=== PATIENT | male | born 2000 | race Caucasian/White ===

== ENCOUNTER 2023-05-10 15:37 | Observation (INO) | payer SELFPAY ==
[2023-05-10] VITALS (16 sets, daily range): BP systolic 106–129; BP diastolic 64–83; PULSE 72–104; RESP 14–19; TEMP 36.7–37.2; O2SAT 92–99; BMI 24.7; BMI 25.3
--- NOTE | 2023-05-10 15:56 | CTR_ITS ---
PROCEDURE INFORMATION: Exam: CT Abdomen And Pelvis With Contrast Exam date and time: 05/10/2023 4:11 PM Age: 22 years old Clinical indication: Abdominal pain; Localized; Right lower quadrant (rlq); Additional info: Rlq pain TECHNIQUE: Imaging protocol: Computed tomography of the abdomen and pelvis with contrast. Radiation optimization: All CT scans at this facility use at least one of these dose optimization techniques: automated exposure control; mA and/or kV adjustment per patient size (includes targeted exams where dose is matched to clinical indication); or iterative reconstruction. Contrast material: OMNI 350; Contrast volume: 100 ml; Contrast route: INTRAVENOUS (IV); REPORTING DATA: Count of CT and Cardiac NM exams in prior 12 months: This patient has received 0 known CTs and 0 known cardiac nuclear medicine studies in the 12 months prior to the current study. COMPARISON: No relevant prior studies available. RADIATION DOSE METRICS: Total DLP (mGy-cm): 346 FINDINGS: Lungs: No significant infiltrate or effusion is seen within the visualized lung bases. Liver: Normal. No mass. Gallbladder and bile ducts: Gallbladder is not well distended and otherwise unremarkable. No calcification or stones. No biliary ductal dilatation. Pancreas: Normal. No ductal dilation. Spleen: Normal. No splenomegaly. Adrenal glands: Normal. No mass. Kidneys and ureters: A small 6 mm rounded hypodense focus of fluid density is seen within the upper pole cortex of the left kidney suggesting small left renal cortical simple cyst. Kidneys appear unremarkable otherwise. Stomach and bowel: Gastric contents noted within a mildly distended stomach. Moderate stool volume in the colon. Bowel appears unremarkable otherwise. No obstruction. Appendix: A mildly thickened and mildly prominent tubular structure appears to arise from the posterior cecum, anterolateral of the right psoas muscle, appearing blind ending in relation to adjacent small bowel in the region. This measures up to 9 mm with suggestion mild wall thickening and minimal hazy mesenteric infiltration at this region. No fluid collection or free air. Findings suggest mild and/or early acute appendicitis, which is not excluded. This is seen on series 3 axial images 46 through 52. Series 5 coronal image 21. Series 6 sagittal images 44 through 46. Intraperitoneal space: See Soft tissues finding. Vasculature: Unremarkable. No abdominal aortic aneurysm. Lymph nodes: Unremarkable. No enlarged lymph nodes. Urinary bladder: Unremarkable as visualized. Reproductive: Unremarkable as visualized. Bones/joints: Osseous structures show no acute abnormality. Soft tissues: No acute findings. CT/CT abdomen pelvis w con* [id number] IMPRESSION: Findings suggesting mild and/or early acute appendicitis, as noted above. COMMENTS: Consistent with the [employer]'s Incidental Findings Committee white paper (J Am Chas Radiol 2018): Any incidental renal lesion less than 1 cm or classified as too small to characterize, or any incidental cystic renal lesion characterized as simple-appearing, is likely benign. No follow-up imaging is recommended for these lesions per consensus recommendations based on imaging criteria.
--- NOTE | 2023-05-10 15:57 | ED_ITS ---
HPI - Abdominal Pain 2 General: Chief Complaint: Abdominal Pain Stated Complaint: abd pain Time Seen by Provider: 05/10/23 15:42 Source: patient Mode of arrival: ambulatory Limitations: no limitations History of Present Illness: 22-year-old male states he has had right lower quadrant pain that started 2 hours ago. States pain is sharp in nature rates it an 8 out of 10 worse movement improved with rest he denies any dysuria has had no vomiting or diarrhea no previous abdominal surgeries. Associated Symptoms: Denies chills, diarrhea, dysuria, fever(s), nausea and vomiting Review of Systems 2 Const: Denies: fever(s), chills, body aches or change in appetite ENMT: Denies: throat pain or dental pain Card: Denies: chest pain Resp: Denies: dyspnea GI: Reports: abdominal pain; Denies: nausea, vomiting or diarrhea : Denies: dysuria Musc: Denies: neck pain or back pain Skin/Breast: Denies: rash Neuro: Denies: headache(s) Physical Exam 2 Const: COMMON NORMALS: no acute distress, patient oriented x3 and healthy appearing HENMT: COMMON NORMALS: normocephalic and atraumatic HEAD & SCALP: n ormocephalic and atraumatic Neck/C-Spine: COMMON NORMALS: full ROM and supple Chest: COMMONS NORMALS: normal inspection of the chest Resp: COMMON NORMALS: normal respiratory effort Cardio: COMMON NORMALS: regular rate, regular rhythm and No murmurs present (Cardio) RATE: regular rate RHYTHM: regular rhythm GI: COMMON NORMALS: Normal to inspection, nondistended, normoactive bowel sounds present, Soft to palpation and no masses PALPATION: Yes Soft to palpation and Yes Tenderness to palpation present (GI) Details: RLQ Extremity: COMMON NORMALS: normal to inspection and full ROM Neuro: COMMON NORMALS: patient oriented x3, moves all extremities and no focal motor deficits Psych: COMMON NORMALS: mental status grossly normal, Normal thought process present and cooperative THOUGHT PROCESS: Normal thought process present Skin: COMMON NORMALS: no rashes or lesions noted and no wounds GENERAL SKIN EXAM: no rashes or lesions noted Course 2 Vital Signs: Vital signs: Vital Signs Temperature 98.1 F 05/10/23 15:46 Pulse Rate 78 05/10/23 16:59 Respiratory Rate 16 05/10/23 15:46 Blood Pressure 118/72 12/21/23 15:46 Pulse Oximetry 97 05/10/23 16:59 MDM - Abdominal Pain Medical Decision Making Patient presents here with right lower quadrant pain CT here shows appendicitis of spoke to the surgeon Dr. Villanueva who is coming to see pt will start antibiotics. Medical Records I reviewed the patient's medical records. Lab Data I reviewed the patient's lab results. 05/10/23 16:09 05/10/23 16:09 Labs/Radiology: Radiology Impressions Abdomen/Pelvis CT 05/10/23 15:56 IMPRESSION: Findings suggesting mild and/or early acute appendicitis, as noted above. COMMENTS: Consistent with the [employer]'s Incidental Findings Committee white paper (J Am Chas Radiol 2018): Any incidental renal lesion less than 1 cm or classified as too small to characterize, or any incidental cystic renal lesion characterized as simple-appearing, is likely benign. No follow-up imaging is recommended for these lesions per consensus recommendations based on imaging criteria. Laboratory Results WBC 15.85 10^3/uL (3.29-11.43) H 05/10/23 16:09 RBC 5.95 10^6/uL (3.85-5.65) H 05/10/23 16:09 Hgb 17.10 g/dL (11.27-16.99) H 05/10/23 16:09 Hct 48.7 % (37-53) 05/10/23 16:09 MCV 81.8 fl (82-101) L 05/10/23 16:09 MCH 28.7 pg (27-33) 05/10/23 16:09 MCHC 35.1 g/dL (30-55) 05/10/23 16:09 RDW 12.2 % (12.1-15.1) 05/10/23 16:09 Plt Count 330 10^3/cmm (157-399) 05/10/23 16:09 MPV 9.6 fL (7.4-10.4) 05/10/23 16:09 Neut % (Auto) 86.0 % 05/10/23 16:09 Lymph % (Auto) 7.4 % 05/10/23 16:09 [place] % (Auto) 5.9 % 05/10/23 16:09 Eos % (Auto) 0.1 % 05/10/23 16:09 Baso % (Auto) 0.3 % 05/10/23 16:09 Neut # (Auto) 13.61 10^3/uL (1.8-7.7) H 05/10/23 16:09 Lymph # (Auto) 1.2 10^3/uL (0.8-4.8) 05/10/23 16:09 [place] # (Auto) 0.9 10^3/uL (0.2-0.9) 05/10/23 16:09 Eos # (Auto) 0.0 10^3/uL (0.0-0.8) 05/10/23 16:09 Baso # (Auto) 0.1 10^3/uL (0.0-0.1) 05/10/23 16:09 Nucleated RBC % (auto) 0 % 05/10/23 16:09 Nucleated RBCs # 0.0 /100WBC 05/10/23 16:09 Sodium 142 mmol/L (136-145) 05/10/23 16:09 Potassium 3.5 mmol/L (3.5-5.1) 05/10/23 16:09 Chloride 102 mmol/L (98-107) 05/10/23 16:09 Carbon Dioxide 29 mmol/L (22-29) 05/10/23 16:09 Anion Gap 14.5 (5-19) 05/10/23 16:09 BUN 15 mg/dL (6-20) 05/10/23 16:09 Creatinine 1.1 mg/dL (0.7-1.2) 05/10/23 16:09 GFR Calculation 83.0 mL/min (90-130) L 05/10/23 16:09 Glucose 102 mg/dL (65-115) 05/10/23 16:09 Calculated Osmolality 295 mOsm/kg (285-295) 05/10/23 16:09 Calcium 10.0 mg/dL (8.5-10.5) 05/10/23 16:09 Total Bilirubin 0.4 mg/dL (0.15-1.2) 05/10/23 16:09 AST 25 U/L (0-40) 05/10/23 16:09 ALT 47 U/L (0-41) H 05/10/23 16:09 Alkaline Phosphatase 118 U/L (40-130) 05/10/23 16:09 Total Protein 8.1 g/dL (6.6-8.7) 05/10/23 16:09 Albumin 5.2 g/dL (3.5-5.2) 05/10/23 16:09 Globulin 2.9 g/dL (1.3-4.6) 05/10/23 16:09 Lipase 15 U/L (13-60) 05/10/23 16:09 All radiology interpretation(s) finalized by discharge Discharge Plan Discharge Patient Disposition: Admitted As Inpatient Clinical Impression: Acute appendicitis Condition: Stable Prescriptions: No Action No Known Home Medications Patient Instructions: Appendicitis (GEN) Coding Level of Care Code ED [employer] Install[employer] Supervisor for Pily Loera
[2023-05-10] MEDS: sodium chloride 0.9% 1,000 ML 999 ML IV (16:19)
[2023-05-10] MEDS: iohexol 350 mg/mL 500 mL Btl (per mL) IV (16:19)
[2023-05-10 16:32] LABS: Basophils # 0.1 10^3/uL (0.0-0.1); Basophils % 0.3 %; Eosinophils % 0.1 %; Hematocrit 48.7 % (37-53); Lymphocytes # 1.2 10^3/uL (0.8-4.8); Lymphocytes % 7.4 %; Mean Corpuscular HGB Conc 35.1 g/dL (30-55); Mean Corpuscular Hemoglobin 28.7 pg (27-33); Mean Corpuscular Volume 81.8 fl (82-101); Mean Platelet Volume 9.6 fL (7.4-10.4); Monocytes # 0.9 10^3/uL (0.2-0.9); Monocytes % 5.9 %; Neutrophils # 13.61 10^3/uL (1.8-7.7); Nucleated Red Blood Cells % 0 %; Platelet Count 330 10^3/cmm (157-399); Red Blood Count 5.95 10^6/uL (3.85-5.65); Red Cell Distribution Width 12.2 % (12.1-15.1); White Blood Count 15.85 10^3/uL (3.29-11.43)
[2023-05-10 16:42] LABS: Alanine Aminotransferase 47 U/L (0-41); Albumin Level 5.2 g/dL (3.5-5.2); Alkaline Phosphatase 118 U/L (40-130); Anion Gap 14.5 (5-19); Aspartate Amino Transferase 25 U/L (0-40); Blood Urea Nitrogen 15 mg/dL (6-20); Carbon Dioxide 29 mmol/L (22-29); Chloride 102 mmol/L (98-107); Globulin 2.9 g/dL (1.3-4.6); Glucose 102 mg/dL (65-115); Lipase 15 U/L (13-60); Osmolality Calculated 295 mOsm/kg (285-295); Potassium 3.5 mmol/L (3.5-5.1); Sodium 142 mmol/L (136-145); Total Bilirubin 0.4 mg/dL (0.15-1.2); Total Protein 8.1 g/dL (6.6-8.7)
[2023-05-10] MEDS: piperacillin-tazobactam 3.375 GM in sodium chloride 0.9% (plus) 50 ML IV ×2 (17:13→23:17)
[2023-05-10 17:26] LABS: Add Urine Microscopic? YES; Bilirubin Urine Neg (Negative); Blood Urine Neg (Negative); Glucose Urine UA Norm (Normal); Ketones Urine Negative (Negative); Leukocyte Esterase Urine Negative (Negative); Nitrate Urine Negative (Negative); Protein Urine Neg (Negative); Specific Gravity, Urine 1.015 (1.005-1.030); Urine Appearance Cloudy (CLEAR); Urine Color Yellow (Yellow); Urobilinogen Urine Norm (Negative); pH Urine 7 (5-7)
--- NOTE | 2023-05-10 17:41 | P.HP_ITS ---
Providers/Chief Complaint 2 Admitting Physician: Rich Chief Complaint: abd pain History of Present Illness Raj Waller is a 22 year old male who presents with a 2 to 3-hour history of right lower quadrant pain. The patient states that he was working and developed sudden onset of right lower quadrant pain. The patient had no nausea or vomiting. The patient thought he was constipated. He did have a bowel movement. This did not relieve the patient's pain. The patient's states that he is not hungry. The pain hurts worse when he moves. The pain is better when he stays still. The patient is never had pain like this before. Nobody at home is in pain or has a viral syndrome Review of Systems 2 General: Reports: 10 or more systems reviewed and unremarkable except in HPI and below Medications/Allergies Home Medications Medication Instructions Recorded Confirmed Last Taken Type No Known Home Medications 05/10/23 05/10/23 Unknown History Allergies Allergy/AdvReac Type Severity Reaction Status Date / Time No Known Allergies Allergy Verified 05/10/23 15:48 Vitals/I&O/Wt Last Vital Signs Temp 98.1 F 05/10/23 15:46 Pulse 104 H 05/10/23 17:31 Resp 16 05/10/23 17:31 BP 120/69 05/10/23 17:31 Pulse Ox 98 05/10/23 17:31 O2 Del Method Room Air 05/10/23 17:31 Weight last 48 hrs Weight 140 lb Physical Exam 2 Narrative: Generally: No acute distress HEENT: Is normocephalic atraumatic Lungs: Clear to auscultation percussion Heart: Regular rate and rhythm without murmurs. There is no S3 or S4. There is no rubs clicks or JVD noted Abdomen: Soft, nondistended. The patient has point tenderness right lower quadrant with rebound. The patient has no hernias that I can appreciate. There is no hepatosplenomegaly Pelvis: Stable to both AP and medial compression Extremities: There is no obvious deformities or point tenderness suggestive of fracture. The patient's hands are both dirty. 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 The patient has good capillary refill in both his hands and feet. Neurologic: The patient is awake, alert, oriented x 3. The patient's Umair Coma Scale is 15. The patient moves all 4 extremities without difficulty. The patient sensations intact to light touch throughout. Data 12/21/23 16:09 05/10/23 16:09 Attestation for Other Data: I personally reviewed and interpreted the following: (I have reviewed the CT scan and labs on this patient) A&P Assessment and plan (1) Acute appendicitis: Will schedule the patient for a laparoscopic appendectomy, possible open appendectomy. The risk and benefits of this procedure have been explained to the patient. The patient seems to understand the risk and benefits and like to proceed. Qualifiers: Acute appendicitis type: unspecified acute appendicitis type Qualified Code(s): K35.80 - Unspecified acute appendicitis Attestations 2 Medical Necessity Statement*: Will admit for operative procedure Coding Level of Care Code 41643 Diagnoses Acute appendicitis K35.80 Acute appendicitis type: unspecified acute appendicitis type
[2023-05-10 18:00] LABS: Add Urine Culture? No; Amorphous Sediment Urine 2+ /hpf; RBC Urine RARE /hpf (0-2)
--- NOTE | 2023-05-10 19:44 | PM.OP ---
Operative Report Date of procedure: May 10, 2023 Pre-op diagnosis: Acute appendicitis Post-op diagnosis: same Procedure done: Laparoscopic appendectomy Pathology: Appendix Surgeon: Ian Villanueva MD Anesthesia: General Estimated blood loss (mL): 5 Complications: None noted Findings: Acute suppurative appendicitis. There is no evidence of perforation. The appendiceal stump was flush with the cecum. Condition: stable Disposition: PACU Brief History: This is a 22-year-old male who presents with acute onset of abdominal pain. CT scan of the abdomen pelvis is suggestive of acute appendicitis. The risk and benefits of laparoscopic appendectomy and been explained to the patient. The patient seems to understand the risk and benefits and would like to proceed. Procedure: The patient was brought to the operating room and placed in the supine position. After adequate endotracheal anesthesia, the patient's abdomen is prepped and draped in usual sterile fashion. Following this a timeout was performed. The patient's identifiers as well as the goals of procedure were discussed. Everyone in the room agreed. A towel clip was placed on each side of the umbilicus and lifted towards the ceiling. A curvilinear incision was made at the cephalad portion of the umbilicus. This was done with a 11 blade knife. This was a curvilinear incision. Hemostats were used to dissect down to the fascia. Now a 12 mm trocar was placed through this wound into the abdomen. The abdomen is now insufflated to 15 mmHg. A scope was placed through this port. It confirmed we were in the abdomen. There is no evidence of intra-abdominal injury. Now an incision was made just to the left of the midline in the left lower quadrant. This was done with the 11 blade. Now a 12 mm trocar was placed through this wound into the abdomen under direct vision. Attention was turned to just to the right of the midline over the symphysis pubis. This was a couple centimeters above the symphysis pubis. A small incision was made with 11 blade. Following this a 5 mm port was placed through this wound into the abdomen under direct vision. The patient was now placed in Trendelenburg. He was rolled with his left side down his right side up in order for the bowel to fall away from the right lower quadrant. Now a Tray was used to locate the the cecum. The appendix could easily be seen. The appendix was lifted up. There was just a few wispy adhesions. Taken down with the [place]. Was used to grab the appendix and the appendix was placed on some stretch towards the anterior abdominal wall. Now is able to see the full length of the appendix. I can see it going into the cecum. A window was created in the mesoappendix with my Mandi. This was done at the base of the appendix. Once this window was created a SHANI stapler was placed through this window across the base of the appendix. This had a blue load. This was fired. This amputated the appendix. Now, attention was turned to the mesoappendix. The SHANI stapler which was loaded with a white load was now placed across the mesoappendix. This was fired. This amputated the mesoappendix. The appendix was now placed in an Endobag. The patient was now flattened out. A Tray was used to grasp the cecum. The appendiceal stump was carefully inspected. There is no bleeding. The appendiceal stump was flush with the cecum. There was no bleeding from the mesoappendix. There is just a small amount of blood that was inferior and lateral to the cecum. I did not think that we needed to suction this out. I thought that this was adequate. Now, the trocar and the Endobag was pulled out of the left lower quadrant incision. A 5 mm trocar was also pulled out. These were both done under direct vision. There is no bleeding from the trocar sites. The abdomen was now allowed to deflate. The umbilical trocar was now removed. 0 Vicryl was used in a [id number] fashion to close the fascia at both 12 mm ports. Now 4-0 Monocryl was used in an interrupted fashion, a subcuticular, interrupted fashion to close the skin. Dermabond was applied. The patient was awakened and taken recovery room in stable condition. From the procedure I spoke with the patient's girlfriend. I explained the above findings. All questions were addressed.
--- NOTE | 2023-05-10 19:50 | ANES.PREANE2 ---
Pre-Anesthetic Assessment Height/Weight: Height 1.6 m Weight 63.503 kg Temp Pulse Resp BP Pulse Ox O2 Del Method 98.1 F 104 H 16 120/69 98 Room Air 05/10/23 15:46 05/10/23 17:31 05/10/23 17:31 05/10/23 17:31 05/10/23 17:31 05/10/23 17:31 Preop Diagnosis: abdominal pain Operation Date: 05/10/23 19:00 Proposed Procedures p Laparoscopic Appendectomy(Not Applicable) - Ian Villanueva MD Familial anesthetic complications: none Was Beta Barney taken within 24 hours: N/A Was Clonidine taken within 24 hours: N/A Last intake: Intake Last Liquid Date 05/10/23 Last Liquid Time 13:00 Last Solid Date 05/10/23 Last Solid Time 13:00 Social Tobacco (chews) and No alcohol Exam alert, oriented x 3, clear to auscultation bilaterally and regular rate & rhythm Airway Submandibular: within normal limits Cervical ROM: within normal limits Mallampati: Class II Dentition: chipped and partials (retainer) GI acute appe Anesthetic Plan ASA status: 2E Anesthesia: General (RSI) Medications/Allergies Home Medications Medication Instructions Recorded Confirmed Last Taken Type No Known Home Medications 05/10/23 05/10/23 Unknown History Allergies Allergy/AdvReac Type Severity Reaction Status Date / Time No Known Allergies Allergy Verified 05/10/23 15:48 Data Anesthesia 05/10/23 16:09 05/10/23 16:09 Short CBC 05/10/23 Range/Units 16:09 WBC 15.85 H (3.29-11.43) 10^3/uL Hgb 17.10 H (11.27-16.99) g/dL Hct 48.7 (37-53) % MCV 81.8 L (82-101) fl Plt Count 330 (157-399) 10^3/cmm Neut % (Auto) 86.0 % Neut # (Auto) 13.61 H (1.8-7.7) 10^3/uL BMP 05/10/23 16:09 Sodium 142 Potassium 3.5 Chloride 102 Carbon Dioxide 29 BUN 15 Creatinine 1.1 Glucose 102 Calcium 10.0 Liver Function 05/10/23 Range/Units 16:09 Total Bilirubin 0.4 (0.15-1.2) mg/dL AST 25 (0-40) U/L ALT 47 H (0-41) U/L Alkaline Phosphatase 118 (40-130) U/L Albumin 5.2 (3.5-5.2) g/dL Urine 05/10/23 Range/Units 16:51 Urine Color Yellow (Yellow) Urine Appearance Cloudy A (CLEAR) Urine pH 7 (5-7) Ur Specific [place] 1.015 (1.005-1.030) Urine Protein Neg (Negative) Urine Glucose (UA) Norm (Normal) Urine Ketones Negative (Negative) Urine Nitrate Negative (Negative) Urine Bilirubin Neg (Negative) Ur Leukocyte Esterase Negative (Negative) Urine RBC Rare (0-2) /hpf Urine WBC None (0-5) /hpf Cardiac Studies: No Data to Display
--- NOTE | 2023-05-10 20:04 | ANE.PACU2 ---
Inpatient post-anesthesia follow up: Airway intact: Yes Vital signs: Temperature 98. 6F Pulse Rate 100 Respiratory Rate 14 Blood Pressure 126/73 Pulse Oximetry 98 Oxygen Delivery Me thod RA Oxygen Flow Rate 0 Fraction of Inspir ed Oxygen Hydration adequate: Yes Nausea and vomiting: No Pain level: Other (0) Mental status: Baseline
[2023-05-10] MEDS: sodium chloride 0.9% 1,000 ML 75 ML IV (20:53)
[2023-05-10] MEDS: morphine 4 mg/mL SDV 1 mL 2 MG IVP (20:53)
[2023-05-11 01:30] VITALS: BP 114/66; PULSE 76; RESP 16; TEMP 36.9; O2SAT 95
[2023-05-11 03:30] VITALS: BP 109/65; PULSE 68; RESP 16; O2SAT 95
[2023-05-11 06:08] LABS: Basophils % 0.1 %; Hematocrit 44.1 % (37-53); Lymphocytes # 0.6 10^3/uL (0.8-4.8); Lymphocytes % 7.4 %; Mean Corpuscular HGB Conc 35.1 g/dL (30-55); Mean Corpuscular Hemoglobin 28.8 pg (27-33); Mean Platelet Volume 9.4 fL (7.4-10.4); Monocytes # 0.2 10^3/uL (0.2-0.9); Monocytes % 2.8 %; Neutrophils # 7.37 10^3/uL (1.8-7.7); Neutrophils % 89.5 %; Nucleated Red Blood Cells % 0 %; Platelet Count 288 10^3/cmm (157-399); Red Blood Count 5.38 10^6/uL (3.85-5.65); Red Cell Distribution Width 12.2 % (12.1-15.1); White Blood Count 8.24 10^3/uL (3.29-11.43)
[2023-05-11 06:33] LABS: Blood Urea Nitrogen 14 mg/dL (6-20); Calcium 9.2 mg/dL (8.5-10.5); Carbon Dioxide 25 mmol/L (22-29); Chloride 104 mmol/L (98-107); Glomerular Filtration Rate 119.8 mL/min (90-130); Glucose 158 mg/dL (65-115); Osmolality Calculated 292 mOsm/kg (285-295); Sodium 139 mmol/L (136-145)
[2023-05-11 07:33] VITALS: BP 108/64; PULSE 90; RESP 16; TEMP 36.8; O2SAT 96
--- NOTE | 2023-05-11 08:53 | PC.CHAP ---
Pastoral Care Encounter/Spiritual Assessment Type of Contact [] Declined broom man visit [] Patient/Family/Request visit [] Outpatient visit [] Follow-up visit [] Physician referral [] Code/Alert [] Routine visit [] Staff referral [] Actively dying [x] Patient sleeping [x] Family support [] [] Out of room [] Palliative care [] [] Receiving care in room [] Pre-surgical visit [] Trauma [] Long length of stay [] ICU visit [] Other: Relational/Emotional Strength [] Patient feels connected with others/family/visitors/staff [] Distress [] Loneliness/isolation [] Abandonment Spirituality of Patient [x] Person of Keila [] Attends Sabianism of their Keila [x] Believes in Prayer [] Reads Bible or Jainism materials [] There are Spiritual issues to be addressed Fishing Game Warden Interventions [x] Prayer [] Active listening [x] Non-anxious presence [x] Spiritual/emotional support [] Crisis/trauma care [] Spiritual counseling [] Bereavement support [] Provided bereavement packet [] Provided Bible/devotional materials [] Provided toy/stuffed animal, coloring book to patient or family member [] Provided Communion [] Anointing/[facility] [] Salvation [x] Completed spiritual assessment [] Other: Impact on Illness or Injury [] Angry [] Fearful [] Anxious [] Often cries [] Exhaustion [] Unable to work [] Unable to attend religious [] Unable to walk/stand [] Unable to read [] Unable to drive [] Unable to eat/drink [] Unable to sleep [] Unable to be with family [] Patient intubated [] Other: Summary Time spent with patient 5 min
[2023-05-11] MEDS: famotidine 20 mg Tablet PO (10:39)
--- NOTE | 2023-05-11 11:38 | PM.PN ---
Subjective Subjective: stable overnight. afebrile. feels better. Medications: Reviewed: Yes Vitals/I&O/Wt Last Vital Signs Temp 98.3 F 05/11/23 07:33 Pulse 90 05/11/23 07:33 Resp 16 05/11/23 07:33 BP 108/64 05/11/23 07:33 Pulse Ox 96 05/11/23 07:33 O2 Del Method Room Air 05/11/23 07:33 O2 Flow Rate 6 05/10/23 20:03 05/10/23 05/11/23 05/11/23 22:59 06:59 14:59 Intake Total 1150 / 1150 50 / 1200 1000 / 1000 Output Total Balance 1149 / 1149 50 / 1199 1000 / 1000 Weight last 48 hrs Weight 145 lb 2 oz Weight 143 lb 1.6 oz Weight 140 lb Physical Exam Narrative: General - NAD abd - soft, nontender +BS wounds clean and dry Data 05/11/23 05:44 05/11/23 05:44 A&P Assessment and plan (1) Acute appendicitis: patient doing well. regular diet. discharge home this afternoon. Qualifiers: Acute appendicitis type: unspecified acute appendicitis type Qualified Code(s): K35.80 - Unspecified acute appendicitis Attestations Medical Necessity Statement*: discharge home today Coding Level of Care Code Acute Code for [facility] Diagnoses Acute appendicitis K35.80 Acute appendicitis type: unspecified acute appendicitis type
[2023-05-11 11:46] VITALS: BP 116/62; PULSE 71; RESP 18; TEMP 36.6; O2SAT 96
--- NOTE | 2023-05-11 12:18 | PM.DCS ---
Discharge Providers Date of Admission: 05/10/23 18:13 Date of Discharge: May 11, 2023 Attending Provider at Admission: Ian Villanueva MD Attending Provider at Discharge: Ian Villanueva MD Diagnoses at Discharge Discharge Diagnosis (1) Acute appendicitis: Details from hospital stay: This is a 22-year-old gentleman who presented with signs and symptoms of acute appendicitis. The patient underwent a CT scan of his abdomen and pelvis in the emergency room. This was consistent with acute appendicitis. The patient was scheduled for laparoscopic appendectomy. The patient underwent an uneventful laparoscopic appendectomy. Postoperatively the patient is doing well. The patient is now tolerating a regular diet. His pain is under good control. The patient is ready for discharge at this time. Status: Acute Qualifiers: Acute appendicitis type: unspecified acute appendicitis type Qualified Code(s): K35.80 - Unspecified acute appendicitis Reason for Visit Reason for Visit: abd pain Hospital Course Hospital Course Patient did well status post laparoscopic appendectomy. Physical Exam Narrative: Abdomen: Benign. Patient's laparoscopic appendectomy wounds are healing without evidence of infection. Discharge Data Studies Completed and Pending Completed Studies During Hospitalization Category Date Time Status CT abdomen pelvis w con* [id number] Stat Cat Scan 05/10/23 15:56 Completed Pending at discharge Category Date Time Status Pathology: Surgical [PTH] Routine Pth 05/10/23 19:32 Ordered Radiology Impressions Abdomen/Pelvis CT 05/10/23 15:56 IMPRESSION: Findings suggesting mild and/or early acute appendicitis, as noted above. COMMENTS: Consistent with the [employer]'s Incidental Findings Committee white paper (J [employer]as [employer]iol 2018): Any incidental renal lesion less than 1 cm or classified as too small to characterize, or any incidental cystic renal lesion characterized as simple-appearing, is likely benign. No follow-up imaging is recommended for these lesions per consensus recommendations based on imaging criteria. ADDENDUM: 05/10/23 1730 Report was confirmed by ADRIENNE Vera at 05/10/2023 5:28 PM [employer] and has no questions. Laboratory Results WBC 8.24 10^3/uL (3.29-11.43) 05/11/23 05:44 RBC 5.38 10^6/uL (3.85-5.65) 05/11/23 05:44 Hgb 15.50 g/dL (11.27-16.99) 05/11/23 05:44 Hct 44.1 % (37-53) 05/11/23 05:44 MCV 82.0 fl (82-101) 05/11/23 05:44 MCH 28.8 pg (27-33) 05/11/23 05:44 MCHC 35.1 g/dL (30-55) 05/11/23 05:44 RDW 12.2 % (12.1-15.1) 05/11/23 05:44 Plt Count 288 10^3/cmm (157-399) 05/11/23 05:44 MPV 9.4 fL (7.4-10.4) 05/11/23 05:44 Neut % (Auto) 89.5 % 05/11/23 05:44 Lymph % (Auto) 7.4 % 05/11/23 05:44 Davidson % (Auto) 2.8 % 05/11/23 05:44 Eos % (Auto) 0.0 % 05/11/23 05:44 Baso % (Auto) 0.1 % 05/11/23 05:44 Neut # (Auto) 7.37 10^3/uL (1.8-7.7) 05/11/23 05:44 Lymph # (Auto) 0.6 10^3/uL (0.8-4.8) L 05/11/23 05:44 Davidson # (Auto) 0.2 10^3/uL (0.2-0.9) 05/11/23 05:44 Eos # (Auto) 0.0 10^3/uL (0.0-0.8) 05/11/23 05:44 Baso # (Auto) 0.0 10^3/uL (0.0-0.1) 05/11/23 05:44 Nucleated RBC % (auto) 0 % 05/11/23 05:44 Nucleated RBCs # 0.0 /100WBC 05/11/23 05:44 Sodium 139 mmol/L (136-145) 05/11/23 05:44 Potassium 4.0 mmol/L (3.5-5.1) 05/11/23 05:44 Chloride 104 mmol/L (98-107) 05/11/23 05:44 Carbon Dioxide 25 mmol/L (22-29) 05/11/23 05:44 Anion Gap 14.0 (5-19) 05/11/23 05:44 BUN 14 mg/dL (6-20) 05/11/23 05:44 Creatinine 0.8 mg/dL (0.7-1.2) 05/11/23 05:44 GFR Calculation 119.8 mL/min (90-130) 05/11/23 05:44 Glucose 158 mg/dL (65-115) H 05/11/23 05:44 Calculated Osmolality 292 mOsm/kg (285-295) 05/11/23 05:44 Calcium 9.2 mg/dL (8.5-10.5) 05/11/23 05:44 Total Bilirubin 0.4 mg/dL (0.15-1.2) 05/10/23 16:09 AST 25 U/L (0-40) 05/10/23 16:09 ALT 47 U/L (0-41) H 05/10/23 16:09 Alkaline Phosphatase 118 U/L (40-130) 05/10/23 16:09 Total Protein 8.1 g/dL (6.6-8.7) 05/10/23 16:09 Albumin 5.2 g/dL (3.5-5.2) 05/10/23 16:09 Globulin 2.9 g/dL (1.3-4.6) 05/10/23 16:09 Lipase 15 U/L (13-60) 05/10/23 16:09 Urine Color Yellow (Yellow) 05/10/23 16:51 Urine Appearance Cloudy (CLEAR) A 05/10/23 16:51 Urine pH 7 (5-7) 05/10/23 16:51 Ur Specific [place] 1.015 (1.005-1.030) 05/10/23 16:51 Urine Protein Neg (Negative) 05/10/23 16:51 Urine Glucose (UA) Norm (Normal) 05/10/23 16:51 Urine Ketones Negative (Negative) 05/10/23 16:51 Urine Blood Neg (Negative) 05/10/23 16:51 Urine Nitrate Negative (Negative) 05/10/23 16:51 Urine Bilirubin Neg (Negative) 05/10/23 16:51 Urine Urobilinogen Norm mg/dL (Negative) 05/10/23 16:51 Ur Leukocyte Esterase Negative (Negative) 05/10/23 16:51 Urine RBC Rare /hpf (0-2) 05/10/23 16:51 Urine WBC None /hpf (0-5) 05/10/23 16:51 Ur Squamous Epith Cells None /hpf (0-5) 05/10/23 16:51 Amorphous Sediment 2+ /hpf 05/10/23 16:51 Urine Bacteria None /hpf (NONE) 05/10/23 16:51 Urine Mucus None /hpf 05/10/23 16:51 Vitals Last Vital Signs Temp 97.9 F 05/11/23 11:46 Pulse 71 05/11/23 11:46 Resp 18 05/11/23 11:46 BP 116/62 05/11/23 11:46 Pulse Ox 96 05/11/23 11:46 O2 Del Method Room Air 05/11/23 11:46 O2 Flow Rate 6 05/10/23 20:03 Discharge Plan Discharge Patient Disposition: Home Condition: Stable Prescriptions: New Tylenol 325 mg capsule 650 mg PO Q6H Qty: 30 0RF Rx Instructions: please take around the clock for 48 hours. ibuprofen 800 mg tablet 800 mg PO Q8H Qty: 20 0RF Rx Instructions: please take around the clock for 24 hours then every 8 hours for pain Discharge Orders: Discharge Order (Routine); Ordered 05/11/23 Ordered By: Ian Villanueva Referrals: Smooth Hogan DO [Physician] - 1 week (lap appy follow up We have notified your physician's clinic of the need for a follow-up appointment to be scheduled. If you have not heard from them within the next 2 business days, please call them directly. ) Grecia Trejo FNP [Nurse Practitioner] - 05/24/23 10:00 am Discharge Diet: Regular Discharge Activity: Increase activity as tolerated Patient Instructions: Ibuprofen (By mouth), Appendicitis (GEN), Laparoscopic Appendectomy (DC), Opioid Safety, Post Anesthesia Care Activity Restrictions/Additional Instructions: no heavy lifting for 2 weeks. After 2 weeks may return to regular duties. Discharge Attestations Time Spent in Discharge Care*: greater than 30 min Quality Metrics Clinical Quality Measures [ No reported AMI, CVA or VTE this stay] Coding Level of Care Code 79309 Diagnoses Acute appendicitis K35.80 Acute appendicitis type: unspecified acute appendicitis type
[2023-05-11 13:23] VITALS: BP 116/62; PULSE 71; RESP 18; TEMP 36.6; O2SAT 96
== END 2023-05-11 13:24 | disposition home or self-care (01) ==
LOC: ER 17:23 → MEDSURG 20:13
PROVIDERS: Admitting Provider Surgery Surgical Critical Care; Emergency Provider Emergency Medicine; Visit Provider Surgery Surgical Critical Care
PROC: 0DTJ4ZZ Resection of Appendix, Percutaneous Endoscopic Approach (ICD-10-PCS; CPT 44970; principal; 2023-05-10 19:00)
DX: K35.80 Unspecified acute appendicitis (principal); F17.220 Nicotine dependence, chewing tobacco, uncomplicated
CPT/HCPCS: 44970; 36415; 74177; 80048; 80053; 81001; 83690; 85025; 88304; 96365; 99285; G0378; J2250; J2270; J2543; J2704; J2710; J3010; J3490; J7030; Q9967